=== PATIENT | male | born 1990 | race African-American/Black ===

== ENCOUNTER → 2020-08-22 07:42 | Outpatient (BNVA) | payer OTHER, SELFPAY | PROVIDERS: PCP Internal Medicine; Referring Provider Internal Medicine; Visit Provider Internal Medicine Endocrinology, Diabetes & Metabolism | DX: E05.00 Thyrotoxicosis with diffuse goiter without thyrotoxic crisis or storm (principal); E55.9 Vitamin D deficiency, unspecified; N62 Hypertrophy of breast; Z79.899 Other long term (current) drug therapy | CPT/HCPCS: 99212 ==

== ENCOUNTER 2022-01-24 07:11 | Outpatient (REF) | payer OTHER, SELFPAY ==
[2022-01-24 08:39] LABS: Free T4 (Free Thyroxine) 1.02 ng/dL (0.71-1.85)
[2022-01-26 01:42] LABS: Follicle Stimulating Hormone 17.5 mIU/mL (1.6-8.0); Lutenizing Hormone 14.2 mIU/mL (1.5-9.3)
[2022-01-29 17:56] LABS: Testosterone, Free 90.3 pg/mL (35.0-155.0); Testosterone, Total 740 ng/dL (250-1100)
== END 2022-01-24 07:12 | disposition home or self-care (01) ==
LOC: HO.LAB 07:11
PROVIDERS: PCP Nurse Practitioner; Visit Provider Internal Medicine Endocrinology, Diabetes & Metabolism
DX: E05.00 Thyrotoxicosis with diffuse goiter without thyrotoxic crisis or storm (principal); N62 Hypertrophy of breast
CPT/HCPCS: 36415; 83001; 83002; 84402; 84403; 84439; 84443; 99212

== ENCOUNTER → 2022-07-25 08:03 | Outpatient (BNVA) | payer OTHER, SELFPAY | PROVIDERS: PCP Nurse Practitioner; Visit Provider Internal Medicine Endocrinology, Diabetes & Metabolism | DX: E05.00 Thyrotoxicosis with diffuse goiter without thyrotoxic crisis or storm (principal); N62 Hypertrophy of breast | CPT/HCPCS: 99212 ==

== ENCOUNTER → 2024-01-29 14:28 | Outpatient (RCR) | payer OTHER, SELFPAY ==
[2020-06-30 08:53] LABS: MANUAL DIFF FLAG NO
[2020-06-30 08:54] VITALS: BP 138/76; PULSE 77; RESP 12; TEMP 36.4; O2SAT 100; BMI 24.0
--- NOTE | 2020-06-30 09:02 | PM.HEMONCPN ---
Medical Summary - Medical Summary Date of Service: 06/30/20 Medical Summary: DIAGNOSIS: 1. LEUKOPENIA. 2. Thrombocytopenia. 3. GRAVES DISEASE Interval History Interval history: This is a pleasant 30 year-old gentleman, here for a follow-up visit. He denies any complaints today. He tells me he has vacation from school this month. He is working from home. He has good energy level. He denies any recent fever chills nor infections. He denies any headache no dizziness. No chest pain or trouble breathing. He denies abdominal pain nausea vomiting heartburn indigestion. Bowels are working without any gross blood in it. He enjoys a good appetite. He is vegan. He has gained weight. He is in good spirits. He is trying to reduce his stress level. Rest of the review of systems is unremarkable. He tells me that recently he got the engaged. They are completing the paperwork for immigration for his fiancee who is [employer]. Review of Systems - Constitutional Reports no additional constitutional complaints - Eyes Reports no additional eye complaints - ENT Reports no additional ear, nose, mouth, and throat complaints - Cardiovascular Reports no additional cardiovascular complaints - Respiratory Reports no additional respiratory complaints - Gastrointestinal Reports no additional gastrointestinal complaints - Genitourinary Genitourinary: Reports no additional male genitourinary complaints - Musculoskeletal Reports no additional musculoskeletal complaints - Integumentary/Breasts Skin/Breast: Reports no additional skin complaints - Neurologic Reports no additional neurologic complaints - Psychiatric Reports no additional psychiatric complaints - Endocrine Reports no additional endocrine complaints - Hematologic/Lymphatic Reports no additional hematologic/lymphatic complaints - Allergic/Immunologic Reports no additional allergic/immunologic complaints [facility] Medical History: Medical History (Last Updated 06/30/20 @ 07:47 by Heavenly Damon) ADHD (attention deficit hyperactivity disorder) Anemia Graves disease Hormone imbalance Leukopenia Thrombocytopenia Vitamin D deficiency Family History: Family History (Last Updated 06/30/20 @ 08:58 by Heavenly Damon) Maternal Grandfather Pancreatic cancer Maternal Grandmother Diabetes Heart failure Maternal Aunt Diabetes Surgical History: Surgical History (Last Updated 06/30/20 @ 08:57 by Heavenly Damon) Hx of colonoscopy Social History: Social History (Last Updated 06/30/20 @ 08:59 by Heavenly Damon) Alcohol History: Alcohol intake: current Alcohol History Details: Alcohol intake frequency: holiday/special occasion Tobacco History: Smoking Status: Never smoker Substance Use History: Use of substances other than those prescribed or required for medical reasons: No Smoking status: Never smoker Home Medications and Allergies Home Medications Medication Instructions Recorded Confirmed Type cholecalciferol (vitamin D3) 125 mcg PO DAILY 06/30/20 06/30/20 History [Vitamin D3] methylphenidate HCl [Ritalin] 10 mg PO DAILY 06/30/20 06/30/20 History Allergies Allergy/AdvReac Type Severity Reaction Status Date / Time ENVIRONMENTAL Allergy Mild CONGESTION/ITCHY Uncoded 02/18/20 19:33 EYES/SNEEZING Exam Vital signs: Vital Signs Temp 97.5 F 06/30/20 08:54 Pulse 77 06/30/20 08:54 Resp 12 06/30/20 08:54 BP 138/76 06/30/20 08:54 Pulse Ox 100 06/30/20 08:54 Intake & Output 06/29/20 06/30/20 06/30/20 18:59 06:59 18:59 Other: Weight 80.2 kg Weight 80.2 kg Body Mass Index 24.0 - Constitutional Present: no acute distress - Routine HEENT Exam Head: Present: normal inspection Eye: Present: normal appearance ENT: Present: mucous membranes moist - Routine Neck Exam Present: full ROM - Routine Respiratory Exam Present: CTAB - Routine Cardiovascular Exam Cardiovascular: Present: RRR, S1, S2 - Routine Abdominal Exam Present: soft, nontender - Routine Extremities Exam Present: nontender - Routine Back/Spine/Pelvis Exam Back/Spine: Present: full ROM - Routine Skin Exam Present: intact - Routine Neurological Exam Present: alert, oriented X3 - Routine Psychiatric Exam Present: normal affect Data - Labs CBC & Chem 7: 06/30/20 08:50 06/30/20 08:50 Progress Note: A/P (1) Leukopenia Status: Acute Assessment and plan: This is a pleasant 30 year-old gentleman with Leukopenia and mild Thrombocytopenia. Exact duration unclear. The lab records in the computer date back to July of 2018. However it could be longstanding. DIFFERENTIAL DIAGNOSIS INCLUDES: 1. Racial leukopenia: Sometimes patients of descent can have a low white count. 2. Collagen vascular disorder: He has history of Graves disease, that can be associated with other antibodies. Lupus versus rheumatoid arthritis are other possibilities. 3. B12 folate deficiency: He tells me he is a vegan. So could be on nutritional basis. 4. Underlying chronic infections: Hepatitis or HIV. 5. Underlying myelo infiltrative disorder: MDS, M.M: Less likely in this young patient with normal hemoglobin. 6. Benign/cyclic Leukopenia. l proceeded with further evaluation. I checked collagen vascular profile: ESR: 2, RA: <15, JERRI: Negative. Checked B12: 228 and folate levels: 18.2. Checked Hepatitis screen and HIV, these are negative. His SIEP: No monoclonal band detected. He is doing very well. His counts are stable, except for mild leukopenia. Even that has improved. Today's WBC is 4. 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 He mentions he is being worked up by endocrine for gynecomastia and elevated estrogen levels. PLAN: His B12 level came back a bit low at 194. This is likely on the basis of his diet which is vegan. Will send oral B12 prescription to his pharmacy. Will monitor his blood count carefully over time. If his WBC count drops to 2 or below, will proceed with a bone marrow exam for further evaluation. He will follow-up with Dr. Salinas. He will return in 6 months for a follow-up visit. I wish him best of luck with his upcoming wedding plans. Thank you, CC: Dr. Salinas. Dr. Syd Brown. - Time Spent With Patient Total time spent is greater than 50% in coordination of care (as documented) at patient's floor/unit and/or counseling patient: 25 - 35 minutes
[2020-06-30 09:07] LABS: Basophils Percent Auto 0.5 % (0-2); Eosinophils Percent Auto 0.8 % (0-4); Hematocrit 43.7 % (42-52); Hemoglobin 14.6 g/dl (14.0-18.0); Imm Gran Abs Auto 0.01 X10*3/uL (0.00-0.03); Imm Gran Pct Auto 0.3 % (0.0-0.4); Mean Corpuscular HGB Conc 33.4 g/dl (31.0-36.0); Mean Corpuscular Hemoglobin 29.4 pg (27.0-33.0); Mean Corpuscular Volume 87.9 fL (80-98); Mean Platelet Volume 9.9 fL (9.4-12.4); Monocytes Absolute Auto 0.5 X10*3/uL (0.1-1.2); Monocytes Percent Auto 11.8 % (2-11); Neutrophils Absolute Auto 1.5 X10*3/uL (2.0-8.3); Neutrophils Percent Auto 36.6 % (45-73); Platelet Count 204 X10*3/uL (160-400); Red Blood Count 4.97 X10*6/uL (4.60-5.80); Red Cell Distribution Width 12.8 % (11.0-16.0)
--- NOTE | 2020-06-30 09:38 | MHC.HEMONCMA ---
Patient came in for a follow up today, states that he is doing well- no complaints. Allergies and medications were reviewed and updated. He had labs today. He will return in 6 months.
[2020-06-30 09:44] LABS: Alanine Aminotransferase 26 U/L (0-40); Albumin Level 4.5 g/dL (3.5-5.0); Alkaline Phosphatase 71 U/L (39-117); Anion Gap 13 (12-20); Aspartate Amino Transferase 27 U/L (5-37); Bilirubin Total 0.6 mg/dL (0.0-1.0); Blood Urea Nitrogen 13 mg/dL (9-16); Calcium 9.3 mg/dL (8.4-10.2); Carbon Dioxide 29 mmol/L (22-29); Chloride 100 mmol/L (96-108); Creatinine Clr Calc Pharmacy 128.8; Estimated Glomerular Filt Rate > 60; Glucose Random 92 mg/dL (60-115); Lactate Dehydrogenase 151 U/L (118-273); Potassium 4.3 mmol/l (3.3-5.1); Sodium 138 mmol/L (135-145); Total Protein 7.9 g/dL (6.5-8.0)
[2020-06-30 11:13] LABS: Folate 13.8 ng/mL (> or = 4.0); Vitamin B12 194 pg/mL (200-900)
== END | disposition home or self-care (01) ==
LOC: HO.ONC 06-30 08:42
PROVIDERS: PCP Internal Medicine; Visit Provider Internal Medicine Medical Oncology
DX: D72.819 Decreased white blood cell count, unspecified (principal); D69.6 Thrombocytopenia, unspecified; E05.00 Thyrotoxicosis with diffuse goiter without thyrotoxic crisis or storm; N62 Hypertrophy of breast; R89.1 Abnormal level of hormones in specimens from other organs, systems and tissues
CPT/HCPCS: 36415; 80053; 82607; 82746; 83615; 85025; 99214